=== PATIENT | male | born 1980 | race Two or more races ===

== ENCOUNTER 2017-01-21 17:17 | Emergency (ER) | payer OTHER ==
[~2017-01-21] VITALS: Ht 175.3 cm; Wt 108.6 kg
[2017-01-21] MEDS ORDERED: SODIUM CHLORIDE FLUSH 10ML SYR IVF ONE (18:00)
[2017-01-21] MEDS ORDERED: SODIUM CHLORIDE 0.9% 1,000ML IVBOLUS ONE (18:00)
[2017-01-21] MEDS ORDERED: ONDANSETRON 2MG/ML, 2ML IVPush ONE (18:00)
[2017-01-21] MEDS ORDERED: PLEASE ENTER ALLERGIES MC SCH ×2 (18:30)
[2017-01-21 18:34] LABS: HEMATOCRIT 48.1 % (39.2-51.8); HEMOGLOBIN 16.5 g/dL (13.7-18.0); WHITE BLOOD COUNT 9.7 x10^3/uL (3.4-10)
[2017-01-21 18:42] LABS: BLOOD UREA NITROGEN 13 mg/dL (7-18)
[2017-01-21 20:34] VITALS: BP 124/70
== END 2017-01-21 20:36 | disposition home or self-care (01) ==
LOC: ED 20:30
DX: K64.8 Other hemorrhoids (principal); R19.7 Diarrhea, unspecified; J02.8 Acute pharyngitis due to other specified organisms; J06.9 Acute upper respiratory infection, unspecified; L73.9 Follicular disorder, unspecified
CPT/HCPCS: 36415; 71010; 80048; 81003; 82040; 83605; 85025; 87081; 87147; 87880; 93005; 99285